=== PATIENT | female | born 1965 | race Caucasian/White ===

== ENCOUNTER 2016-08-03 12:44 | Outpatient (CLI) | payer OTHER ==
[2015-10-29 14:34] VITALS: O2SAT 95
== END 2016-08-03 12:45 | disposition home or self-care (01) | DRG 554 ==
LOC: CONVCARE 12:44
PROVIDERS: ATTEND Orthopaedic Surgery
DX: M17.11 Unilateral primary osteoarthritis, right knee (principal)
CPT/HCPCS: 73560

== ENCOUNTER 2016-08-10 11:12 | Day surgery (SDC) | payer OTHER ==
[2016-08-10] MEDS ORDERED: DEXAMETHASONE SOD PHOS PF 10 MG/ML SOL IJ ONE (11:54)
[2016-08-10 12:29] VITALS: BP 127/72; PULSE 81; RESP 14; TEMP 97.6; O2SAT 96
== END 2016-08-10 12:40 | disposition home or self-care (01) | DRG 552 ==
LOC: SURG 11:12
PROVIDERS: ATTEND Nurse Anesthetist, Certified Registered
DX: M54.5 Low back pain (principal); M54.16 Radiculopathy, lumbar region
CPT/HCPCS: J1100

== ENCOUNTER 2017-07-25 12:33 | Outpatient (CLI) | payer OTHER ==
[2016-12-30 13:36] VITALS: O2SAT 97
== END 2017-07-25 12:34 | disposition home or self-care (01) | DRG 554 ==
LOC: CONVCARE 12:33
PROVIDERS: ATTEND Orthopaedic Surgery
DX: M17.0 Bilateral primary osteoarthritis of knee (principal)
CPT/HCPCS: 73562

== ENCOUNTER 2017-08-08 05:38 | Inpatient (IN) | payer OTHER ==
[2017-08-08] MEDS ORDERED: LACTATED RINGERS 1,000 ML IV ONE (06:00)
[2017-08-08] MEDS: SCOPOLAMINE 1.5MG PATCH TD SCH (06:32)
[2017-08-08] MEDS ORDERED: SODIUM CHLORIDE 20 ML 40 ML ONE (06:51)
[2017-08-08] MEDS ORDERED: BUPIVACAINE HCL 0.25% MPF 30 ML SOL INFIL ONE ×2 (06:51→07:48)
[2017-08-08] MEDS: LACTATED RINGERS 1,000 ML IV SCH (07:02)
[2017-08-08] MEDS ORDERED: DEXAMETHASONE 20 MG/5 ML (4 MG/ML SOL) ONE (07:24)
[2017-08-08] MEDS ORDERED: ONDANSETRON HCL 4 MG/2 ML SOL ONE (07:24)
[2017-08-08] MEDS ORDERED: LIDOCAINE HCL 1% MPF 30 SOL ONE (07:24)
[2017-08-08] MEDS ORDERED: PROPOFOL 500 MG/50 ML EMU IV ONE ×3 (07:24→09:35)
[2017-08-08] MEDS ORDERED: MORPHINE SULFATE 0.5 MG/ML SOL ONE (07:25)
[2017-08-08] MEDS ORDERED: MIDAZOLAM 2 MG/2 ML SOL ONE ×2 (07:25→09:07)
[2017-08-08] MEDS ORDERED: CEFAZOLIN SODIUM 1 GM PDS ONE ×4 (08:48→23:42)
[2017-08-08] MEDS ORDERED: PHENYLEPHRINE HYDROCHLORIDE 10 MG/ML SOL ONE (08:48)
[2017-08-08] MEDS: TRANEXAMIC ACID 100 MG/ML SOL ONE ×2 (08:50→09:54)
[2017-08-08] MEDS ORDERED: FENTANYL 100MCG/2ML SOL ONE (08:53)
[2017-08-08] MEDS ORDERED: KETAMINE HYDROCHLORIDE 50 MG/ML SOL ONE (09:02)
[2017-08-08] MEDS: BUPIVACAINE LIPOSOME 20 ML SUS ONE ×2 (09:26→09:56)
[2017-08-08] MEDS ORDERED: MAGNESIUM HYDROXIDE 30 ML SUS PO PRN (10:21)
[2017-08-08] MEDS ORDERED: ONDANSETRON 4 MG ODT BU PRN (10:21)
[2017-08-08] MEDS ORDERED: MORPHINE SULFATE 10 MG/ML SOL IV PRN (10:21)
[2017-08-08] MEDS ORDERED: SODIUM CHLORIDE 0.9% 500 ML 500 ML IV PRN (10:21)
[2017-08-08] MEDS ORDERED: ONDANSETRON HCL 4 MG/2 ML SOL IV PRN (10:21)
[2017-08-08] MEDS ORDERED: FLEET ENEMA PR PRN (10:21)
[2017-08-08] MEDS ORDERED: ALUMINUM/MAGNESIUM 30 ML SUS PO PRN (10:21)
[2017-08-08] MEDS ORDERED: BISACODYL 10 MG SUP PR PRN (10:21)
[2017-08-08] MEDS ORDERED: DIPHENHYDRAMINE 25 MG CAP PO PRN (10:21)
[2017-08-08] MEDS ORDERED: KETOROLAC TROMETHAMINE 30 MG/ML SOL ONE (10:37)
[2017-08-08] MEDS: HYDROMORPHONE 1 MG/ML SYRINGE ONE ×2 (10:50→11:07)
[2017-08-08] MEDS: APAP/OXYCODONE 325/5 TAB PO PRN ×4 (12:05→23:45)
[2017-08-08] MEDS: SODIUM CHLORIDE 0.9% FLUSH 10 ML SOL IV SCH ×4 (12:06→21:39)
[2017-08-08] MEDS ORDERED: SODIUM CHLORIDE 0.9% 100 ML 100 ML IV ONE ×2 (16:23→23:42)
[2017-08-08] MEDS: CEFAZOLIN SODIUM 1 GM PDS 2 GM in SODIUM CHLORIDE 0.9% 100 ML 100 ML IV SCH ×2 (16:31→23:46)
[2017-08-08] MEDS ORDERED: SODIUM CHLORIDE 0.9% 500 ML 500 ML IV ONE (21:14)
[2017-08-08] MEDS: SENNOSIDES A AND B 8.6 MG TAB PO SCH (21:20)
[2017-08-09] MEDS: APAP/OXYCODONE 325/5 TAB PO PRN ×5 (03:38→21:14)
[2017-08-09] MEDS: SODIUM CHLORIDE 0.9% FLUSH 10 ML SOL IV SCH ×3 (03:39→19:47)
[2017-08-09] MEDS: LACTATED RINGERS 1,000 ML IV SCH (06:15)
[2017-08-09] MEDS: LEVOTHYROXINE SODIUM 112 MCG TAB PO SCH (06:20)
[2017-08-09] MEDS: ENOXAPARIN 40 MG SOL SC SCH (08:01)
[2017-08-09] MEDS: DULOXETINE HCL 30 MG CAPSULE.DR PO SCH (08:02)
[2017-08-09 08:25] LABS: HEMOGLOBIN 12.1 gm/dl (12.0-15.5); MEAN CORPUSCULAR HGB CONC 32.9 gm/dl (32.0-36.0)
[2017-08-09] MEDS ORDERED: GABAPENTIN 300 MG CAP PO SCH (09:00)
[2017-08-09] MEDS: CLINDAMYCIN PHOSPHATE 1% TP SCH (09:31)
[2017-08-09] MEDS: DIAZEPAM 5 MG TAB PO PRN ×2 (12:11→16:37)
[2017-08-09] MEDS: OXYCODONE HYDROCHLORIDE 5 MG TAB PO PRN (19:37)
[2017-08-09] MEDS: SENNOSIDES A AND B 8.6 MG TAB PO SCH ×2 (19:47→23:43)
[2017-08-09] MEDS ORDERED: OXYCODONE HYDROCHLORIDE 5 MG TAB PO PRN (21:27)
[2017-08-09] MEDS ORDERED: GABAPENTIN 300 MG CAP PO ONE (21:30)
[2017-08-10] MEDS: OXYCODONE HYDROCHLORIDE 5 MG TAB PO PRN ×3 (00:36→13:55)
[2017-08-10] MEDS: SODIUM CHLORIDE 0.9% FLUSH 10 ML SOL IV SCH ×3 (03:17→18:58)
[2017-08-10] MEDS: APAP/OXYCODONE 325/5 TAB PO PRN ×5 (03:17→21:26)
[2017-08-10] MEDS: LEVOTHYROXINE SODIUM 112 MCG TAB PO SCH (06:42)
[2017-08-10] MEDS: LACTATED RINGERS 1,000 ML IV SCH (07:39)
[2017-08-10 08:54] LABS: HEMOGLOBIN 12.2 gm/dl (12.0-15.5); MEAN CORPUSCULAR HEMOGLOBIN 28.9 pg (27.0-32.0); MEAN CORPUSCULAR HGB CONC 32.7 gm/dl (32.0-36.0)
[2017-08-10] MEDS ORDERED: GABAPENTIN 300 MG CAP PO SCH (09:00)
[2017-08-10] MEDS: DULOXETINE HCL 30 MG CAPSULE.DR PO SCH (09:03)
[2017-08-10] MEDS: GABAPENTIN 300 MG CAP PO SCH ×2 (09:04→21:24)
[2017-08-10] MEDS: ENOXAPARIN 40 MG SOL SC SCH (09:08)
[2017-08-10] MEDS: CLINDAMYCIN PHOSPHATE 1% TP SCH (10:58)
[2017-08-10] MEDS: DIAZEPAM 5 MG TAB PO PRN (17:07)
[2017-08-10] MEDS: SENNOSIDES A AND B 8.6 MG TAB PO SCH (21:23)
[2017-08-11] MEDS: APAP/OXYCODONE 325/5 TAB PO PRN ×3 (02:52→14:39)
[2017-08-11] MEDS: SODIUM CHLORIDE 0.9% FLUSH 10 ML SOL IV SCH ×2 (02:53→09:52)
[2017-08-11 02:58] VITALS: BP 113/73; PULSE 95; RESP 18; TEMP 99.1; O2SAT 96
[2017-08-11] MEDS: LEVOTHYROXINE SODIUM 112 MCG TAB PO SCH (07:01)
[2017-08-11 07:34] LABS: HEMOGLOBIN 11.6 gm/dl (12.0-15.5); MEAN CORPUSCULAR HEMOGLOBIN 29.4 pg (27.0-32.0); MEAN CORPUSCULAR HGB CONC 34.2 gm/dl (32.0-36.0)
[2017-08-11] MEDS ORDERED: ACETAMINOPHEN 325 MG PO PRN (08:29)
[2017-08-11] MEDS ORDERED: PIPERACILLIN/TAZOBACT 3.375 GM PDS IV ONE (09:23)
[2017-08-11] MEDS: GABAPENTIN 300 MG CAP PO SCH (09:25)
[2017-08-11] MEDS: DULOXETINE HCL 30 MG CAPSULE.DR PO SCH (09:27)
[2017-08-11] MEDS: SCOPOLAMINE 1.5MG PATCH TD SCH (09:56)
[2017-08-11] MEDS: LACTATED RINGERS 1,000 ML IV SCH (09:57)
[2017-08-11] MEDS: ENOXAPARIN 40 MG SOL SC SCH (10:19)
[2017-08-11] MEDS: OXYCODONE HYDROCHLORIDE 5 MG TAB PO PRN (10:54)
[2017-08-11] MEDS: CLINDAMYCIN PHOSPHATE 1% TP SCH (14:03)
== END 2017-08-11 15:15 | disposition home or self-care (01) | DRG 470 ==
LOC: ACUTE CARE 05:38
PROVIDERS: ADMIT Orthopaedic Surgery; ATTEND Orthopaedic Surgery
PROC: F01ZDFZ Gait and/or Balance Assessment using Assistive, Adaptive, Supportive or Protective Equipment (ICD-10-PCS; 2017-08-08)
PROC: F01ZBZZ Bed Mobility Assessment (ICD-10-PCS; 2017-08-08)
PROC: F01ZCZZ Transfer Assessment (ICD-10-PCS; 2017-08-08)
PROC: 0SRD0J9 Replacement of Left Knee Joint with Synthetic Substitute, Cemented, Open Approach (ICD-10-PCS; principal; 2017-08-08 08:00)
PROC: F02Z1ZZ Dressing Assessment (ICD-10-PCS; 2017-08-09)
PROC: F02Z0ZZ Bathing/Showering Assessment (ICD-10-PCS; 2017-08-09)
PROC: F02Z3ZZ Grooming/Personal Hygiene Assessment (ICD-10-PCS; 2017-08-09)
DX: M17.12 Unilateral primary osteoarthritis, left knee (principal); G62.9 Polyneuropathy, unspecified; E03.9 Hypothyroidism, unspecified; Z96.652 Presence of left artificial knee joint; R00.0 Tachycardia, unspecified
CPT/HCPCS: 36415; 73560; 85027; 94150; 94762; 99070; J0690; J1100; J1650; J1885; J2250; J2274; J2405; J2543; J3010; A6232; A9270-GY; J1170; J2001; J2370; J2704; J3490

== ENCOUNTER 2017-09-26 07:34 | Outpatient (CLI) | payer OTHER ==
[2017-08-11 02:58] VITALS: O2SAT 96
== END 2017-09-26 07:35 | disposition home or self-care (01) | DRG 561 ==
LOC: CONVCARE 07:34
PROVIDERS: ATTEND Orthopaedic Surgery
DX: Z47.1 Aftercare following joint replacement surgery (principal); M25.562 Pain in left knee; Z96.652 Presence of left artificial knee joint
CPT/HCPCS: 73562

== ENCOUNTER 2018-05-01 08:00 | Inpatient (IN) | payer OTHER ==
[2018-06-05] MEDS ORDERED: LACTATED RINGERS 1,000 ML IV ONE (06:00)
[2018-06-05] MEDS: SODIUM CHLORIDE 0.9% FLUSH 10 ML SOL IV SCH ×4 (06:29→19:23)
[2018-06-05] MEDS: SCOPOLAMINE 1.5MG PATCH TD SCH (06:33)
[2018-06-05] MEDS ORDERED: SODIUM CHLORIDE 20 ML 40 ML ONE (06:56)
[2018-06-05] MEDS ORDERED: LACTATED RINGERS 1,000 ML IV SCH (07:00)
[2018-06-05] MEDS ORDERED: PROPOFOL 500 MG/50 ML EMU IV ONE ×2 (07:31→09:38)
[2018-06-05] MEDS ORDERED: MIDAZOLAM 2 MG/2 ML SOL ONE ×2 (07:33→09:42)
[2018-06-05] MEDS ORDERED: MORPHINE SULFATE 0.5 MG/ML SOL ONE (07:33)
[2018-06-05] MEDS ORDERED: BUPIVACAINE HCL IN DEXTROSE/PF 2 ML AMPUL IJ ONE (07:39)
[2018-06-05] MEDS ORDERED: CEFAZOLIN SODIUM 1 GM PDS ONE ×3 (07:53→19:51)
[2018-06-05] MEDS ORDERED: KETAMINE HYDROCHLORIDE 50 MG/ML SOL ONE (07:53)
[2018-06-05] MEDS ORDERED: TRANEXAMIC ACID 100 MG/ML SOL ONE (08:21)
[2018-06-05] MEDS ORDERED: DEXAMETHASONE 20 MG/5 ML (4 MG/ML SOL) ONE (09:11)
[2018-06-05] MEDS ORDERED: METOCLOPRAMIDE HYDROCHLORIDE 5 MG/ML SOL ONE (09:11)
[2018-06-05] MEDS ORDERED: ONDANSETRON HCL 4 MG/2 ML SOL ONE (09:11)
[2018-06-05] MEDS: BUPIVACAINE HCL 0.25% MPF 30 ML SOL INFIL ONE ×2 (09:34→10:02)
[2018-06-05] MEDS: BUPIVACAINE LIPOSOME 20 ML SUS ONE ×2 (09:34→10:02)
[2018-06-05] MEDS ORDERED: SODIUM CHLORIDE 0.9% 500 ML 500 ML IV PRN (10:58)
[2018-06-05] MEDS ORDERED: FLEET ENEMA PR PRN (10:58)
[2018-06-05] MEDS ORDERED: MAGNESIUM HYDROXIDE 30 ML SUS PO PRN (10:58)
[2018-06-05] MEDS ORDERED: ONDANSETRON 4 MG ODT BU PRN (10:58)
[2018-06-05] MEDS ORDERED: DIAZEPAM 5 MG TAB PO PRN (10:58)
[2018-06-05] MEDS ORDERED: ALUMINUM/MAGNESIUM 30 ML SUS PO PRN (10:58)
[2018-06-05] MEDS ORDERED: BISACODYL 10 MG SUP PR PRN (10:58)
[2018-06-05] MEDS ORDERED: ACETAMINOPHEN 325 MG PO PRN (10:58)
[2018-06-05] MEDS ORDERED: ONDANSETRON HCL 4 MG/2 ML SOL IV PRN (10:58)
[2018-06-05] MEDS ORDERED: HYDROMORPHONE 1 MG/ML SYRINGE IV PRN (10:58)
[2018-06-05] MEDS: DEXTROSE/SALINE 0.45/KCL 20MEQ 1,000 ML/1,000 ML SOL IV SCH ×2 (11:37→20:21)
[2018-06-05] MEDS: APAP/OXYCODONE 1 EACH TABLET PO PRN ×3 (15:06→21:17)
[2018-06-05] MEDS ORDERED: SODIUM CHLORIDE 0.9% 100 ML 100 ML IV ONE ×2 (16:23→19:51)
[2018-06-05] MEDS: CEFAZOLIN SODIUM 1 GM PDS 2 GM in SODIUM CHLORIDE 0.9% 100 ML 100 ML IV SCH (16:31)
[2018-06-05] MEDS: SENNOSIDES A AND B 8.6 MG TAB PO SCH (20:20)
[2018-06-05] MEDS: GABAPENTIN 300 MG CAP PO SCH (20:20)
[2018-06-05] MEDS ORDERED: GABAPENTIN 300 MG CAP PO SCH (21:00)
[2018-06-05] MEDS: ZOLPIDEM TARTRATE 5 MG TAB PO PRN (21:32)
[2018-06-06] MEDS: SODIUM CHLORIDE 0.9% FLUSH 10 ML SOL IV SCH ×6 (00:08→22:02)
[2018-06-06] MEDS: CEFAZOLIN SODIUM 1 GM PDS 2 GM in SODIUM CHLORIDE 0.9% 100 ML 100 ML IV SCH ×2 (00:50→08:59)
[2018-06-06] MEDS: APAP/OXYCODONE 1 EACH TABLET PO PRN ×5 (01:18→21:58)
[2018-06-06 07:18] LABS: MEAN CORPUSCULAR HEMOGLOBIN 28.5 pg (27.0-32.0); MEAN CORPUSCULAR HGB CONC 32.6 gm/dl (32.0-36.0)
[2018-06-06] MEDS: DEXTROSE/SALINE 0.45/KCL 20MEQ 1,000 ML/1,000 ML SOL IV SCH (07:23)
[2018-06-06] MEDS ORDERED: CEFAZOLIN SODIUM 1 GM PDS ONE (08:48)
[2018-06-06] MEDS ORDERED: SODIUM CHLORIDE 0.9% 100 ML 100 ML IV ONE (08:48)
[2018-06-06] MEDS: DULOXETINE HCL 30 MG CAPSULE.DR PO SCH (09:00)
[2018-06-06] MEDS: RIVAROXABAN 10 MG TAB PO SCH (09:01)
[2018-06-06] MEDS: GABAPENTIN 300 MG CAP PO SCH ×3 (09:01→22:02)
[2018-06-06] MEDS: LEVOTHYROXINE SODIUM 112 MCG TAB PO SCH (09:02)
[2018-06-06] MEDS: CLINDAMYCIN PHOSPHATE 1% TP SCH (09:03)
[2018-06-06] MEDS: ZOLPIDEM TARTRATE 5 MG TAB PO PRN (21:00)
[2018-06-06] MEDS: SENNOSIDES A AND B 8.6 MG TAB PO SCH (22:02)
[2018-06-07] MEDS: APAP/OXYCODONE 1 EACH TABLET PO PRN ×5 (02:47→21:44)
[2018-06-07] MEDS: SODIUM CHLORIDE 0.9% FLUSH 10 ML SOL IV SCH (02:48)
[2018-06-07] MEDS: LEVOTHYROXINE SODIUM 112 MCG TAB PO SCH (06:27)
[2018-06-07 07:37] VITALS: RESP 18
[2018-06-07 08:11] LABS: HEMOGLOBIN 12.7 gm/dl (12.0-15.5)
[2018-06-07] MEDS: GABAPENTIN 300 MG CAP PO SCH ×3 (08:46→20:32)
[2018-06-07] MEDS: RIVAROXABAN 10 MG TAB PO SCH (08:47)
[2018-06-07] MEDS: DULOXETINE HCL 30 MG CAPSULE.DR PO SCH (08:47)
[2018-06-07] MEDS: CLINDAMYCIN PHOSPHATE 1% TP SCH (10:49)
[2018-06-07] MEDS: SENNOSIDES A AND B 8.6 MG TAB PO SCH (20:33)
[2018-06-07] MEDS: ZOLPIDEM TARTRATE 5 MG TAB PO PRN (20:36)
[2018-06-08] MEDS: APAP/OXYCODONE 1 EACH TABLET PO PRN ×3 (03:11→13:40)
[2018-06-08] MEDS: SCOPOLAMINE 1.5MG PATCH TD SCH (06:35)
[2018-06-08] MEDS: LEVOTHYROXINE SODIUM 112 MCG TAB PO SCH (06:36)
[2018-06-08 07:30] LABS: BASOPHILS % (AUTO) 2 % (0-3); EOSINOPHILS % (AUTO) 2 % (0-9); HEMATOCRIT 43 % (35-47); HEMOGLOBIN 13.7 gm/dl (12.0-15.5); LYMPHOCYTES % (AUTO) 27.5 % (10-50); MEAN CORPUSCULAR HGB CONC 31.9 gm/dl (32.0-36.0); MEAN CORPUSCULAR VOLUME 88 fL (81-99); MONOCYTES % (AUTO) 10.1 % (0-12); NEUTROPHILS % (AUTO) 58.5 % (37-80)
[2018-06-08 07:45] VITALS: BP 127/82; PULSE 89; TEMP 99.1; O2SAT 95
[2018-06-08] MEDS: GABAPENTIN 300 MG CAP PO SCH ×2 (08:35→13:39)
[2018-06-08] MEDS: DULOXETINE HCL 30 MG CAPSULE.DR PO SCH (08:35)
[2018-06-08] MEDS: CLINDAMYCIN PHOSPHATE 1% TP SCH (08:35)
[2018-06-08] MEDS: RIVAROXABAN 10 MG TAB PO SCH (08:36)
== END 2018-06-08 13:45 | disposition home or self-care (01) | DRG 470 ==
LOC: ACUTE CARE 06-05 05:45
PROVIDERS: ADMIT Orthopaedic Surgery; ATTEND Orthopaedic Surgery
PROC: F01L5YZ Range of Motion and Joint Integrity Assessment of Musculoskeletal System - Lower Back / Lower Extremity using Other Equipment (ICD-10-PCS; 2018-06-05)
PROC: F01 Physical Rehabilitation and Diagnostic Audiology, Rehabilitation, Motor and/or Nerve Function Assessment (ICD-10-PCS; 2018-06-05)
PROC: F01ZBFZ Bed Mobility Assessment using Assistive, Adaptive, Supportive or Protective Equipment (ICD-10-PCS; 2018-06-05)
PROC: 0SRC0J9 Replacement of Right Knee Joint with Synthetic Substitute, Cemented, Open Approach (ICD-10-PCS; principal; 2018-06-05 08:00)
PROC: F02Z3ZZ Grooming/Personal Hygiene Assessment (ICD-10-PCS; 2018-06-06)
PROC: F02Z0ZZ Bathing/Showering Assessment (ICD-10-PCS; 2018-06-06)
DX: M17.11 Unilateral primary osteoarthritis, right knee (principal); Z96.653 Presence of artificial knee joint, bilateral; E03.9 Hypothyroidism, unspecified; R03.0 Elevated blood-pressure reading, without diagnosis of hypertension; Z98.890 Other specified postprocedural states
CPT/HCPCS: 36415; 73560; 85025; 85027; 85049; 94150; 99070; J0690; J1100; J2250; J2274; J2405; J2765; A6232; A9270-GY; J2704; J3490

== ENCOUNTER 2018-07-24 11:39 | Outpatient (CLI) | payer OTHER ==
[2018-06-08 07:45] VITALS: O2SAT 95
== END 2018-07-24 11:40 | disposition home or self-care (01) | DRG 561 ==
LOC: CONVCARE 11:39
PROVIDERS: ATTEND Orthopaedic Surgery
DX: Z47.1 Aftercare following joint replacement surgery (principal); Z98.890 Other specified postprocedural states
CPT/HCPCS: 73562